=== PATIENT | female | born 1965 | race Caucasian/White ===

== ENCOUNTER 2021-02-02 04:35 | Day surgery (SDC) | payer BC ==
[2021-02-02 08:04] VITALS: BMI 24.8
[2021-02-02 09:35] VITALS: TEMP 98
[2021-02-02 10:48] VITALS: BP 186/96; PULSE 62
== END 2021-02-02 10:48 | disposition home or self-care (01) ==
LOC: JASU-ENDO 04:35
PROVIDERS: ATTEND Internal Medicine Gastroenterology
PROC: 0DB78ZX Excision of Stomach, Pylorus, Via Natural or Artificial Opening Endoscopic, Diagnostic (ICD-10-PCS; 2021-02-02)
PROC: 0DB48ZX Excision of Esophagogastric Junction, Via Natural or Artificial Opening Endoscopic, Diagnostic (ICD-10-PCS; 2021-02-02)
PROC: 0DB98ZX Excision of Duodenum, Via Natural or Artificial Opening Endoscopic, Diagnostic (ICD-10-PCS; principal; 2021-02-02 09:00)
DX: K25.3 Acute gastric ulcer without hemorrhage or perforation (principal); K29.40 Chronic atrophic gastritis without bleeding; K44.9 Diaphragmatic hernia without obstruction or gangrene; K21.00 Gastro-esophageal reflux disease with esophagitis, without bleeding; K22.70 Barrett's esophagus without dysplasia; K22.8 Other specified diseases of esophagus; R10.13 Epigastric pain
CPT/HCPCS: 88305-TC; 88342-TC

== ENCOUNTER 2023-09-16 08:39 | Emergency (ER) | payer BC ==
[2023-09-16 08:44] VITALS: TEMP 98.7; BMI 23.7
[2023-09-16 10:03] VITALS: RESP 16
[2023-09-16 10:49] VITALS: BP 168/86; PULSE 64
== END 2023-09-16 11:18 | disposition home or self-care (01) ==
LOC: JERFT 08:39
DX: H92.02 Otalgia, left ear (principal); H93.12 Tinnitus, left ear
CPT/HCPCS: 70450-TC; 99284-25

== ENCOUNTER 2023-12-30 04:52 | Day surgery (SDC) | payer BC ==
[2023-12-29 11:39] VITALS: BMI 23.8
[2023-12-30 11:42] VITALS: BP 131/81; PULSE 65; RESP 16; TEMP 98
== END 2023-12-30 11:53 | disposition home or self-care (01) ==
LOC: JASU-ENDO 04:52
PROVIDERS: ATTEND Internal Medicine Gastroenterology
PROC: 0DB68ZX Excision of Stomach, Via Natural or Artificial Opening Endoscopic, Diagnostic (ICD-10-PCS; 2023-12-30)
PROC: 0DB48ZX Excision of Esophagogastric Junction, Via Natural or Artificial Opening Endoscopic, Diagnostic (ICD-10-PCS; 2023-12-30)
PROC: 0DB98ZX Excision of Duodenum, Via Natural or Artificial Opening Endoscopic, Diagnostic (ICD-10-PCS; principal; 2023-12-30 11:00)
DX: K21.00 Gastro-esophageal reflux disease with esophagitis, without bleeding (principal); K44.9 Diaphragmatic hernia without obstruction or gangrene
CPT/HCPCS: 88305-TC; 88342-TC